=== PATIENT | male | born 1975 | race African-American/Black ===

== ENCOUNTER 2022-10-06 18:14 | Emergency (ER) | payer OTHER ==
[~2022-10-06] VITALS: Ht 167.6 cm; Wt 71.7 kg
[2022-10-06] MEDS ORDERED: DIFLUCAN150 MG PO (20:26)
== END 2022-10-06 20:33 | disposition home or self-care (01) ==
LOC: ED 18:14
DX: B37.9 Candidiasis, unspecified (principal)